=== PATIENT | male | born 1965 ===

== ENCOUNTER 2018-05-04 07:03 | Outpatient (CLI) | payer OTHER ==
[~2018-05-04 07:03] MED LIST: COZAAR100 MG PO; GLIMEPIRIDE4 MG PO; LANTUS SOLOSTAR3 ML SQ; ONGLYZA5 MG PO
== END 2018-05-04 07:07 | disposition home or self-care (01) ==
LOC: RX STUDY 07:03
DX: C20 Malignant neoplasm of rectum (principal); K56.699 Other intestinal obstruction unspecified as to partial versus complete obstruction